=== PATIENT | male | born 1985 | race Caucasian/White ===

== ENCOUNTER 2024-05-25 15:10 | Outpatient (OUT) | payer BC, SELFPAY ==
--- NOTE | 2024-05-25 15:30 | XR_ITS ---
The [address] [address] Patient Name: DOROTHY EAST MRN: [id number] date: 1985 Sex: M Assigned Patient Location: [facility] Current Patient Location: [facility] Accession/Order Number: [id number] Exam Date: 05/25/2024 15:22 Report Date: 05/26/2024 08:57 At the request of: GRABIEL LEIVA Procedure: XR toe LT min 2V PROCEDURE: XR toe LT min 2V COMPARISON: None. HISTORY: Pain Of Left Great Toe FINDINGS: BONES:No fracture, acute abnormality, or significant arthropathy. SOFT TISSUES:Negative. No visible soft tissue swelling. EFFUSION:None visible. OTHER: Negative. XR/XR toe LT min 2V IMPRESSION: No acute radiographic abnormality Electronically authenticated by: TARUN BUSH Date: 05/26/2024 08:57
--- NOTE | 2024-05-25 15:30 | XR_ITS ---
The [address] [address] Patient Name: DOROTHY EAST MRN: [id number] date: 1985 Sex: M Assigned Patient Location: [facility] Current Patient Location: Accession/Order Number: [id number] Exam Date: 05/25/2024 15:22 Report Date: 05/26/2024 08:12 At the request of: GRABIEL LEIVA Procedure: XR hip LT min 2V PROCEDURE: XR hip LT min 2V COMPARISON: None. HISTORY: Left Hip Pain FINDINGS: BONES:No fracture, acute abnormality, or significant arthropathy. SOFT TISSUES:Negative. No visible soft tissue swelling. EFFUSION:None visible. OTHER: Negative. XR/XR hip LT min 2V IMPRESSION: No acute abnormality Electronically authenticated by: TARUN BUSH Date: 05/26/2024 08:12
== END 2024-05-25 15:11 | disposition home or self-care (01) ==
LOC: RAD 15:15
PROVIDERS: PCP Nurse Practitioner Family; Visit Provider Nurse Practitioner Family
DX: M79.675 Pain in left toe(s) (principal); M25.552 Pain in left hip
CPT/HCPCS: 73502; 73660